=== PATIENT | female | born 2000 | race Caucasian/White ===

== ENCOUNTER 2021-09-23 20:07 | Emergency (ER) | payer BC ==
[~2021-09-23] VITALS: Ht 175.3 cm; Wt 75.0 kg
[2021-09-23 20:13] VITALS: TEMP 98.7
[2021-09-23 21:14] LABS: HEMATOCRIT 37.3 % (35.0-45.0); HEMOGLOBIN 13.5 g/dl (12.0-15.0); MEAN CELL VOLUME 87 fl (80.0-95.0); MEAN CORPUSCULAR HEMOGLOBIN 31 pg (26-32); MEAN CORPUSCULAR HGB CONC 36 g/dl (33.0-37.0); PLATELET COUNT 188 K/mm3 (130-400); REDCELL DISTRIBUTION WIDTH-CV 12.1 % (11.5-14.5)
[2021-09-23 21:25] LABS: ALBUMIN 4.2 gm/dL (3.5-5.0); BILIRUBIN,TOTAL 0.4 mg/dL (0.2-1.2); C-REACTIVE PROTEIN 1.45 mg/dL (0.00-0.50); CALCIUM 9.2 mg/dL (8.4-10.2); CREATININE, serum 0.81 mg/dL (0.57-1.11); TOTAL PROTEIN 7.4 gm/dL (6.2-8.1)
[2021-09-23 21:35] LABS: BAND 5 % (0-10); BASOPHIL 1 % (0-2); EOSINOPHIL 1 % (0-4); LYMPHOCYTE 47 % (20.0-51.0); NEUTROPHILS 38 % (42.0-75.2); PLATELET ESTIMATE NORMAL (NORMAL)
[2021-09-23] MEDS ORDERED: ZOFRAN ODT4 MG PO (22:56)
[2021-09-23] MEDS ORDERED: NORCO 325 MG-51 TAB PO (22:56)
[2021-09-23 23:14] VITALS: BP 118/70; PULSE 72
== END 2021-09-23 23:13 | disposition home or self-care (01) ==
LOC: COL.ER 20:07
PROVIDERS: Nurse Practitioner
DX: K08.89 Other specified disorders of teeth and supporting structures (principal); R11.0 Nausea; Z98.818 Other dental procedure status